=== PATIENT | female | born 1990 | race African-American/Black ===

== ENCOUNTER 2017-04-06 05:12 | Inpatient (IN) ==
[2017-04-06] MEDS ORDERED: OXYTOCIN/LR 20 UNIT/1,000 ML BAG IV ONE ×2 (06:25→10:29)
[2017-04-06] MEDS ORDERED: ONDANSETRON 4 MG/2 ML VIAL IV PRN ×2 (06:32→10:29)
[2017-04-06] MEDS ORDERED: BUTORPHANOL 2 MG/ML VIAL IV PRN (06:32)
[2017-04-06] MEDS ORDERED: OXYTOCIN/LR 20 UNIT/1,000 ML BAG IV SCH (07:00)
[2017-04-06] MEDS ORDERED: LACTATED RINGERS 1,000 ML IV SCH (07:00)
[2017-04-06 07:20] LABS: Basophils % 0.3 % (0.0-0.8); Eosinophils # 0.1 10*3/uL (0.0-0.87); Eosinophils % 0.9 % (0.00-10.9); Hematocrit 33.8 VOL% (35.7-47.0); Hemoglobin 10.9 GM/DL (12.0-16.0); Immature Granulocytes % 1.1 %; Immature Granulocytes Absolute 0.15 #; Lymphocytes % 14.4 % (21.3-54.2); Mean Corpuscular HGB Conc 32.2 GM/DL (32-36); Mean Corpuscular Hemoglobin 26 PG (27-34); Mean Corpuscular Volume 80.7 FL (87-102); Mean Platelet Volume 10.6 FL (9.6-12.0); Monocytes # 0.9 10*3/uL (0.11-0.8); Monocytes % 6.6 % (1.7-12.7); Neutrophils # 10.5 10*3/uL (1.4-7.4); Neutrophils % 76.7 % (38.7-73.9); Platelet Count 220 T/CUMM (130-400); Red Blood Count 4.19 MC/CUMM (3.8-5.5); Red Cell Distribution Width 17.2 % (9.3-17.3); White Blood Count 13.7 T/CUMM (4-12)
[2017-04-06] MEDS ORDERED: miSOPROStol 200 MCG TABLET ONE (09:57)
[2017-04-06] MEDS ORDERED: BUTORPHANOL 1 MG/ML VIAL ONE (09:57)
[2017-04-06] MEDS ORDERED: WITCH HAZEL PADS 100/JAR TOP PRN (10:29)
[2017-04-06] MEDS ORDERED: HYDROCORTISONE 2.5% RECTAL CREAM 30 GM TUBE TOP PRN (10:29)
[2017-04-06] MEDS ORDERED: BISACODYL 10 MG SUPP RECTAL PRN (10:29)
[2017-04-06] MEDS ORDERED: BENZOCAINE 20%/MENTHOL 0.5% SPRAY 56 GM CAN TOP PRN (10:29)
[2017-04-06] MEDS ORDERED: LANOLIN 50% CREAM 0.3 OZ TUBE TOP PRN (10:29)
[2017-04-06] MEDS ORDERED: oxyCODONE/ACETAMINOPHEN 5-325 MG TABLET PO PRN (10:29)
[2017-04-06] MEDS ORDERED: ACETAMINOPHEN 325 MG TABLET PO PRN (10:29)
[2017-04-06] MEDS ORDERED: MEASLES/MUMPS/RUBELLA VACCINE 0.5 ML VIAL SUBCUT ONE (11:00)
[2017-04-06] MEDS ORDERED: RHO(D) IMMUNE GLOBULIN 300 MCG SYRINGE IM ONE (11:00)
[2017-04-06] MEDS ORDERED: DIPH/TET/ACEL PERT BOOSTER VACCINE 0.5 ML VIAL IM ONE (11:00)
[2017-04-06] MEDS: IBUPROFEN 800 MG TABLET PO PRN (14:25)
[2017-04-06] MEDS: oxyCODONE/ACETAMINOPHEN 5-325 MG TABLET PO PRN (18:51)
[2017-04-06] MEDS: DOCUSATE SODIUM 100 MG CAPSULE PO SCH (22:10)
[2017-04-06] MEDS: FERROUS SULFATE 325 MG TABLET PO SCH (22:10)
[2017-04-07] MEDS: IBUPROFEN 800 MG TABLET PO PRN ×2 (03:56→13:56)
[2017-04-07 06:15] LABS: Basophils % 0.2 % (0.0-0.8); Eosinophils % 0.2 % (0.00-10.9); Hematocrit 32.9 VOL% (35.7-47.0); Hemoglobin 11.1 GM/DL (12.0-16.0); Immature Granulocytes % 1.5 %; Lymphocytes % 6.9 % (21.3-54.2); Mean Corpuscular HGB Conc 33.7 GM/DL (32-36); Mean Corpuscular Hemoglobin 27 PG (27-34); Mean Corpuscular Volume 79.3 FL (87-102); Mean Platelet Volume 11.2 FL (9.6-12.0); Monocytes # 0.8 10*3/uL (0.11-0.8); Monocytes % 5.7 % (1.7-12.7); Neutrophils # 11.7 10*3/uL (1.4-7.4); Neutrophils % 85.5 % (38.7-73.9); Platelet Count 191 T/CUMM (130-400); Red Blood Count 4.15 MC/CUMM (3.8-5.5); Red Cell Distribution Width 17.3 % (9.3-17.3); White Blood Count 13.7 T/CUMM (4-12)
[2017-04-07] MEDS: DOCUSATE SODIUM 100 MG CAPSULE PO SCH ×2 (09:22→21:56)
[2017-04-07] MEDS: FERROUS SULFATE 325 MG TABLET PO SCH ×2 (09:22→21:56)
[2017-04-08 07:16] VITALS: BP 128/72
[2017-04-08] MEDS: FERROUS SULFATE 325 MG TABLET PO SCH (09:33)
[2017-04-08] MEDS: DOCUSATE SODIUM 100 MG CAPSULE PO SCH (09:33)
[2017-04-08] MEDS: IBUPROFEN 800 MG TABLET PO PRN (09:33)
[2017-04-08] MEDS: oxyCODONE/ACETAMINOPHEN 5-325 MG TABLET PO PRN (09:34)
== END 2017-04-08 12:40 | disposition home or self-care (01) | DRG 560 ==
LOC: N.LD 05:12 → N.OB 12:40
PROVIDERS: ADMIT Obstetrics & Gynecology; ATTEND Obstetrics & Gynecology

== ENCOUNTER 2019-09-19 12:08 | Inpatient (IN) ==
[2019-09-19] MEDS ORDERED: ONDANSETRON 4 MG/2 ML VIAL IV PRN ×2 (12:35→18:01)
[2019-09-19] MEDS ORDERED: BUTORPHANOL 2 MG/ML VIAL IV PRN (12:35)
[2019-09-19] MEDS ORDERED: MEPERIDINE 50 MG/1 ML VIAL IV PRN (12:35)
[2019-09-19 12:54] LABS: Basophils % 0.2 % (0.0-0.8); Eosinophils # 0.2 10*3/uL (0.0-0.87); Eosinophils % 1.5 % (0.00-10.9); Hematocrit 33.6 VOL% (35.7-47.0); Hemoglobin 10.6 GM/DL (12.0-16.0); Immature Granulocytes % 0.7 %; Immature Granulocytes Absolute 0.09 #; Lymphocytes # 1.8 10*3/uL (1.4-4.0); Lymphocytes % 14.9 % (21.3-54.2); Mean Corpuscular HGB Conc 31.5 GM/DL (32-36); Mean Corpuscular Volume 78.7 FL (87-102); Mean Platelet Volume 10.3 FL (9.6-12.0); Monocytes % 6.8 % (1.7-12.7); Neutrophils % 75.9 % (38.7-73.9); Platelet Count 232 T/CUMM (130-400); Red Blood Count 4.27 MC/CUMM (3.8-5.5); Red Cell Distribution Width 16.3 % (9.3-17.3); White Blood Count 12.3 T/CUMM (4-12)
[2019-09-19] MEDS ORDERED: OXYTOCIN/LR 20 UNIT/1,000 ML BAG IV SCH (13:00)
[2019-09-19] MEDS ORDERED: LACTATED RINGERS 1,000 ML IV SCH (13:00)
[2019-09-19 13:15] LABS: INR 0.9; PT Patient Result 10.1 SECS (9.8-11.9); Partial Thromboplastin Time 26.1 SECS (23.9-33.8)
[2019-09-19 13:34] LABS: Alanine Aminotransferase 16 U/L (13-56); Albumin 2.9 G/DL (3.4-5.0); Alkaline Phosphatase 221 U/L (45-117); Aspartate Amino Transferase 23 U/L (0-37); Bilirubin,Direct < 0.100 MG/DL (0.0-0.20); Blood Urea Nitrogen 6 MG/DL (7-18); Calcium 9.3 MG/DL (8.5-10.1); Estimated Glom Filtration Rate 204 ML/MIN; Glucose 78 MG/DL (74-106); Osmolality,Calculated 269.8 MOS/KG (273-304); Total Protein 7.5 G/DL (6.4-8.3); Uric Acid 5.3 MG/DL (2.6-6.0)
[2019-09-19] MEDS ORDERED: LIDOCAINE 1% 50 ML VIAL ONE (16:21)
[2019-09-19] MEDS ORDERED: miSOPROStoL 200 MCG TABLET ONE (16:21)
[2019-09-19] MEDS ORDERED: CARBOPROST TROMETHAMINE 250 MCG/ML AMP IM ONE (16:22)
[2019-09-19 17:32] LABS: Cord Venous Blood HCO3 20.4 MMOL/L; Cord Venous Blood PCO2 36.6 MMHG; Cord Venous Blood PO2 40.2 MMHG
[2019-09-19] MEDS ORDERED: LABETALOL 100 MG TABLET ONE (17:51)
[2019-09-19] MEDS: LABETALOL 100 MG TABLET PO SCH (17:55)
[2019-09-19] MEDS ORDERED: ACETAMINOPHEN 325 MG TABLET PO PRN (18:01)
[2019-09-19] MEDS ORDERED: LANOLIN 50% CREAM 0.3 OZ TUBE TOP PRN (18:01)
[2019-09-19] MEDS ORDERED: HYDROCORTISONE 2.5% RECTAL CREAM 30 GM TUBE TOP PRN (18:01)
[2019-09-19] MEDS ORDERED: BISACODYL 10 MG SUPP RECTAL PRN (18:01)
[2019-09-19] MEDS ORDERED: OXYTOCIN/LR 20 UNIT/1,000 ML BAG IV ONE (18:01)
[2019-09-19] MEDS ORDERED: WITCH HAZEL PADS 100/JAR TOP PRN (18:01)
[2019-09-19] MEDS ORDERED: BENZOCAINE 20%/MENTHOL 0.5% SPRAY 56 GM CAN TOP PRN (18:01)
[2019-09-19] MEDS ORDERED: oxyCODONE/ACETAMINOPHEN 5-325 MG TABLET PO PRN ×2 (18:01)
[2019-09-19] MEDS: DOCUSATE SODIUM 100 MG CAPSULE PO SCH (21:00)
[2019-09-19] MEDS: IBUPROFEN 800 MG TABLET PO PRN (21:00)
[2019-09-20] MEDS: LABETALOL 100 MG TABLET PO SCH ×4 (00:02→20:36)
[2019-09-20 04:52] LABS: Basophils % 0.2 % (0.0-0.8); Eosinophils # 0.2 10*3/uL (0.0-0.87); Eosinophils % 1.2 % (0.00-10.9); Hematocrit 32.3 VOL% (35.7-47.0); Hemoglobin 10.4 GM/DL (12.0-16.0); Immature Granulocytes % 0.6 %; Immature Granulocytes Absolute 0.08 #; Lymphocytes # 2.8 10*3/uL (1.4-4.0); Lymphocytes % 20.1 % (21.3-54.2); Mean Corpuscular HGB Conc 32.2 GM/DL (32-36); Mean Corpuscular Volume 78.4 FL (87-102); Mean Platelet Volume 10.5 FL (9.6-12.0); Monocytes % 8.2 % (1.7-12.7); Neutrophils % 69.7 % (38.7-73.9); Platelet Count 215 T/CUMM (130-400); Red Blood Count 4.12 MC/CUMM (3.8-5.5); Red Cell Distribution Width 16.1 % (9.3-17.3); White Blood Count 13.8 T/CUMM (4-12)
[2019-09-20] MEDS ORDERED: DIPH/TET/ACEL PERT BOOSTER VACCINE 0.5 ML VIAL IM ONE (09:00)
[2019-09-20] MEDS: DOCUSATE SODIUM 100 MG CAPSULE PO SCH ×2 (10:19→20:36)
[2019-09-20] MEDS: IBUPROFEN 800 MG TABLET PO PRN ×2 (10:55→20:33)
[2019-09-21 09:10] VITALS: BP 138/85
[2019-09-21] MEDS: DOCUSATE SODIUM 100 MG CAPSULE PO SCH (09:58)
[2019-09-21] MEDS: LABETALOL 100 MG TABLET PO SCH (09:58)
== END 2019-09-21 12:45 | disposition home or self-care (01) | DRG 560 ==
LOC: N.LDOUT 12:08 → N.LD 12:10 → N.OB 19:40
PROVIDERS: ADMIT Obstetrics & Gynecology; ATTEND Obstetrics & Gynecology

== ENCOUNTER 2021-08-27 00:10 | Inpatient (IN) ==
[2021-08-27] MEDS ORDERED: CARBOPROST TROMETHAMINE 250 MCG/ML AMP IM PRN (00:19)
[2021-08-27] MEDS ORDERED: LACTATED RINGERS 500 ML IV PRN (00:19)
[2021-08-27] MEDS ORDERED: LACTATED RINGERS 250 ML IV ONE (00:19)
[2021-08-27] MEDS ORDERED: MEPERIDINE 50 MG/1 ML VIAL IV PRN (00:19)
[2021-08-27] MEDS ORDERED: OXYTOCIN/LR 20 UNIT/1,000 ML BAG IV ONE (00:19)
[2021-08-27] MEDS ORDERED: BUTORPHANOL 2 MG/ML VIAL IV PRN (00:19)
[2021-08-27] MEDS ORDERED: TRANEXAMIC ACID 1,000 MG in SODIUM CHLORIDE 0.9% 100 ML IV PRN (00:19)
[2021-08-27] MEDS ORDERED: miSOPROStoL 200 MCG TABLET RECTAL PRN (00:19)
[2021-08-27] MEDS ORDERED: METHYLERGONOVINE 0.2 MG/1 ML AMP IM PRN (00:19)
[2021-08-27] MEDS ORDERED: ONDANSETRON 4 MG/2 ML VIAL IV PRN (00:19)
[2021-08-27] MEDS ORDERED: LACTATED RINGERS 1,000 ML IV SCH (00:30)
[2021-08-27 01:07] LABS: Basophils % 0.3 % (0.0-0.8); Eosinophils # 0.3 10*3/uL (0.0-0.87); Eosinophils % 2.7 % (0.00-10.9); Hematocrit 42.6 VOL% (35.7-47.0); Hemoglobin 13.6 GM/DL (12.0-16.0); Immature Granulocytes % 0.6 %; Immature Granulocytes Absolute 0.06 #; Lymphocytes # 1.5 10*3/uL (1.4-4.0); Lymphocytes % 15.9 % (21.3-54.2); Mean Corpuscular HGB Conc 31.9 GM/DL (32-36); Mean Corpuscular Volume 78.2 FL (87-102); Mean Platelet Volume 10.3 FL (9.6-12.0); Monocytes # 0.7 10*3/uL (0.11-0.8); Monocytes % 7.7 % (1.7-12.7); Neutrophils % 72.8 % (38.7-73.9); Platelet Count 196 T/CUMM (130-400); Red Blood Count 5.45 MC/CUMM (3.8-5.5); Red Cell Distribution Width 16.1 % (9.3-17.3); White Blood Count 9.6 T/CUMM (4-12)
[2021-08-27 01:33] LABS: Alanine Aminotransferase 12 U/L (13-56); Alkaline Phosphatase 115 U/L (45-117); Aspartate Amino Transferase 14 U/L (0-37); Bilirubin,Total < 0.39 MG/DL (0.20-1.00); Blood Urea Nitrogen 6 MG/DL (7-18); Calcium 9.3 MG/DL (8.5-10.1); Carbon Dioxide 22 MMOL/L (21-32); Chloride 109 MMOL/L (98-107); Glucose 88 MG/DL (74-106); Osmolality,Calculated 271.7 MOS/KG (273-304); Potassium 3.5 MMOL/L (3.5-5.1); Sodium 138 MMOL/L (136-145); Total Protein 7.5 G/DL (6.4-8.2); Uric Acid 4.5 MG/DL (2.6-6.0)
[2021-08-27] MEDS: CLINDAMYCIN INJ 900 MG/50 ML PREMIX IV SCH ×2 (01:35→08:48)
[2021-08-27] MEDS ORDERED: OXYTOCIN/LR 20 UNIT/1,000 ML BAG IV SCH (06:00)
[2021-08-27] MEDS ORDERED: NALOXONE 0.4 MG/ML VIAL IV PRN (07:11)
[2021-08-27] MEDS ORDERED: hydrOXYzine HCL 25 MG/1 ML VIAL IM PRN (07:11)
[2021-08-27] MEDS ORDERED: diphenhydrAMINE 50 MG/1 ML VIAL IV PRN ×2 (07:11)
[2021-08-27] MEDS ORDERED: ONDANSETRON 4 MG/2 ML VIAL IV ONE (07:11)
[2021-08-27] MEDS ORDERED: ePHEDrine 50 MG/ML VIAL IV PRN (07:11)
[2021-08-27] MEDS ORDERED: CITRIC ACID/SODIUM CITRATE 30 ML UDCUP PO ONE (07:11)
[2021-08-27] MEDS ORDERED: FAMOTIDINE 20 MG/2 ML VIAL IV ONE (07:11)
[2021-08-27] MEDS ORDERED: PROMETHAZINE 25 MG/1 ML VIAL IM ONE (07:11)
[2021-08-27] MEDS ORDERED: fentaNYL 2 MCG/ROPIV 0.2% EPID 100 ML EPIDURAL SCH (07:30)
[2021-08-27] MEDS ORDERED: TRANEXAMIC ACID 1,000 MG/10 ML VIAL ONE (08:40)
[2021-08-27] MEDS ORDERED: miSOPROStoL 200 MCG TABLET ONE (08:40)
[2021-08-27] MEDS ORDERED: SODIUM CHLORIDE 0.9% 0 ML IV ONE (08:40)
[2021-08-27] MEDS ORDERED: CARBOPROST TROMETHAMINE 250 MCG/ML AMP IM ONE (08:41)
[2021-08-27] MEDS ORDERED: METHYLERGONOVINE 0.2 MG/1 ML AMP ONE (08:41)
[2021-08-27] MEDS: LABETALOL 200 MG TABLET PO SCH ×2 (08:48→21:27)
[2021-08-27 09:59] LABS: Cord Arterial Blood HCO3 20.1 MMOL/L
[2021-08-27 10:02] LABS: Cord Venous Blood HCO3 20.9 MMOL/L; Cord Venous Blood PCO2 47.9 MMHG; Cord Venous Blood PO2 27.7
[2021-08-27] MEDS ORDERED: IBUPROFEN 800 MG TABLET PO PRN (16:22)
[2021-08-27] MEDS: DOCUSATE SODIUM 100 MG CAPSULE PO SCH (21:27)
[2021-08-28 04:07] LABS: Basophils % 0.3 % (0.0-0.8); Eosinophils # 0.3 10*3/uL (0.0-0.87); Eosinophils % 1.9 % (0.00-10.9); Hematocrit 28.3 VOL% (35.7-47.0); Immature Granulocytes % 0.6 %; Immature Granulocytes Absolute 0.09 #; Lymphocytes # 2.9 10*3/uL (1.4-4.0); Mean Corpuscular HGB Conc 31.8 GM/DL (32-36); Mean Corpuscular Volume 79.1 FL (87-102); Mean Platelet Volume 10.2 FL (9.6-12.0); Monocytes # 1.1 10*3/uL (0.11-0.8); Monocytes % 7.7 % (1.7-12.7); Neutrophils % 68.5 % (38.7-73.9); Platelet Count 217 T/CUMM (130-400); Red Blood Count 3.58 MC/CUMM (3.8-5.5); Red Cell Distribution Width 15.7 % (9.3-17.3); White Blood Count 13.9 T/CUMM (4-12)
[2021-08-28] MEDS ORDERED: MAGNESIUM HYDROXIDE SUSP 30 ML UDCUP PO PRN (07:24)
[2021-08-28] MEDS ORDERED: ACETAMINOPHEN 500 MG TABLET PO PRN (07:24)
[2021-08-28] MEDS ORDERED: IBUPROFEN 800 MG TABLET PO PRN (07:24)
[2021-08-28] MEDS ORDERED: BISACODYL 10 MG SUPP RECTAL PRN (07:24)
[2021-08-28] MEDS: MULTIVITAMIN (PRENATAL) TABLET PO SCH (08:42)
[2021-08-28] MEDS: LABETALOL 200 MG TABLET PO SCH ×2 (08:42→20:47)
[2021-08-28] MEDS: DOCUSATE SODIUM 100 MG CAPSULE PO SCH ×3 (08:44→20:47)
[2021-08-28] MEDS ORDERED: IRON PO SCH (09:00)
[2021-08-28] MEDS ORDERED: [UNRECOGNIZED DRUG - OTHER] PO SCH (09:00)
[2021-08-29] MEDS: LABETALOL 200 MG TABLET PO SCH (09:59)
[2021-08-29] MEDS: DOCUSATE SODIUM 100 MG CAPSULE PO SCH (09:59)
[2021-08-29] MEDS: MULTIVITAMIN (PRENATAL) TABLET PO SCH (09:59)
[2021-08-29 13:45] VITALS: BP 137/79
== END 2021-08-29 12:00 | disposition home or self-care (01) | DRG 560 ==
LOC: N.LD 00:10 → N.OB 15:50
PROVIDERS: ADMIT Obstetrics & Gynecology; ATTEND Obstetrics & Gynecology